=== PATIENT | female | born 1985 | race Caucasian/White ===

== ENCOUNTER 2017-04-10 18:31 | Inpatient (IN) | payer MEDICARE, OTHER ==
[2017-04-10 19:18] VITALS: BMI 25.0
--- NOTE | 2017-04-10 22:49 | HP ---
Admission [facility] Chief Complaint: SEEKING REHAB TXMENT FOR ALCOHOLISM. Allergies/Adverse Reactions: Allergies Allergy/AdvReac Type Severity Reaction Status Date / Time Sulfa (Sulfonamide Allergy MOUTH Verified 04/10/17 20:56 Antibiotics) BLISTERS vancomycin Allergy DIFF Verified 04/10/17 20:56 BREATHING, HIVES History of Present Illness: 31 Y.O. FEMALE WITH OPIOID DEPENDENCE AND ALCOHOLISM HERE FOR REHAB SERVICES. CLIENT WAS DC FROM INCARCERATION TODAY ( [employer] [place]) SHE STATES SHE WAS MAINTAINED ON SUBUTEX 4 MG SL BID. LDM SHE REPORTS WAS EARLIER TODAY 4 MG PRIOR TO DC. DECONTAMINATION TECHNICIAN REGISTERY REVIEWED. PT HAS HX/O BUPRENORPHINE 8 MG # 60 RX LAST DISPENSED ON 01/12/2017. SHE IS COURT MANDATED. CLIENT HAS NO DC PAPERS OR DOCUMENTS WITH HER. CASE D/W DR. WOOD WILL ADMIT CLIENT TO REHAB. START SUBOXONE 2 MG SL X 1 DOSE AND MONITOR FOR S/SX OF OVERSEDATION. MAY REPEAT DOSE X 1 IF PT TOLERATES. CLIENT WILL THEN BE ASSESSED AND REEVALUATED FOR CONTINUATION OF THERAPY IN A.M. BY DR. WOOD. D/W CLIENT . CLIENT AGREES TO THE PLAN ABOVE. Exam Limitations: Other (NEWTOK L HEARING AIDE) - Ebola screening Have you traveled outside of the country in the last 21 days: No Have you had contact with anyone from an Ebola affected area: No Have you been sick,other than usual withdrawal symptoms: No Do you have a fever: No - Review of Systems Constitutional: No Symptoms Reported EENT: reports: No Symptoms Reported Respiratory: reports: No Symptoms reported Cardiac: reports: No Symptoms Reported GI: reports: No Symptoms Reported : reports: No Symptoms Reported Musculoskeletal: reports: Neck Pain (DUE TO ACDF SX) Integumentary: reports: Other (RESOLVING ABCESS TO L UNDERARM) Neuro: reports: Seizure, Other (NEWTOK) Endocrine: reports: No Symptoms Reported Hematology: reports: No Symptoms Reported Psychiatric: reports: Anxious Other Systems: Reviewed and Negative Patient History - Patient Medical History Hx Anemia: No Hx Asthma: No Hx Chronic Obstructive Pulmonary Disease (COPD): No Hx Cancer: No Hx Cardiac Disorders: No Hx Congestive Heart Failure: No Hx Hypertension: No Hx Hypercholesterolemia: No Hx Pacemaker: No HX Cerebrovascular Accident: No Hx Seizures: Yes (x3 last being in february R/T DRUG INTERACTION) Hx Dementia: No Hx Diabetes: No Hx Gastrointestinal Disorders: No Hx Liver Disease: No Hx Genitourinary Disorders: No Hx Renal Disease (ESRD): No Hx Thyroid Disease: No Hx Human Immunodeficiency Virus (HIV): No Hx Hepatitis C: No Hx Depression: No Hx Suicide Attempt: No (DENIES SI/HI) Hx Bipolar Disorder: No Hx Schizophrenia: No Other Medical History: NEWTOK OF BOTH EARS/ ANXIETY/AUDITORY HALLUCINATIONS - Patient Surgical History Past Surgical History: Yes Hx Neurologic Surgery: No Hx Cataract Extraction: No Hx Cardiac Surgery: No Hx Lung Surgery: No Hx Breast Surgery: No Hx Breast Biopsy: No Hx Abdominal Surgery: Yes (UMBILICAL HERNIA REPAIR) Hx Appendectomy: No Hx Cholecystectomy: No Hx Genitourinary Surgery: No Hx Section: No Hx Orthopedic Surgery: Yes (ACDF SX OF NECK) Hx Hysterectomy: No Anesthesia Reaction: No - PPD History Previous Implant?: Yes Documented Results: Negative w/o proof Implanted On Prior [facility] Admission?: No PPD to be Administered?: Yes - Reproductive History Patient is a Female of Child Bearing Age (11 -55 yrs old): Yes Last Menstrual Period: 02/08/17 (IRREG) LMP comment: IRREG Patient : No (NEG UHCG) - Smoking Cessation Smoking history: Current every day smoker Have you smoked in the past 12 months: Yes Aproximately how many cigarettes per day: 10 Cigars Per Day: 0 Hx Chewing Tobacco Use: No Initiated information on smoking cessation: Yes 'Breaking Loose' booklet given: 04/10/17 - Substance & Tx. History Hx Alcohol Use: Yes Hx Substance Use: Yes Substance Use Type: Alcohol, Prescribed (SUBUTEX) Hx Substance Use Treatment: Yes ([facility]) - Substances Abused LIQUOR Route: Oral Frequency: Daily Amount used: 1/2 PINT Age of first use: 12 Date of Last Use: 12/08/16 Family Disease History - Family Disease History Family Disease History: Other: Father (ALCOHOLISM/REMISSION) Admission Physical Exam [facility] - Vital Signs Vital Signs: Vital Signs - 24 hr 04/10/17 19:14 Temperature 98.0 F Pulse Rate 109 H Respiratory 18 Rate Blood Pressure 146/83 - Physical General Appearance: Yes: Appropriately Dressed, Anxious HEENTM: Yes: EOMI, Normocephalic, Normal Voice, [place], Pharynx Normal, Other ( NEWTOK IN BOTH EARS L HEARING AIDE NOTED) Respiratory: Yes: Chest Non-Tender, Lungs Clear, Normal Breath Sounds, No Respiratory Distress, No Accessory Muscle Use Neck: Yes: No masses,lesions,Nodules, Supple, Trachea in good position, Other ( SX SCAR TO L SIDE OF NECK) Breast: Yes: Breast Exam Deferred Cardiology: Yes: Regular Rhythm, S1, S2, Tachycardia Abdominal: Yes: Normal Bowel Sounds, Non Tender, Flat, Soft, Surgical Scar Genitourinary: Yes: Within Normal Limits Back: Yes: Normal Inspection Musculoskeletal: Yes: full range of Motion, Gait Steady Extremities: Yes: Normal Capillary Refill, Normal Inspection, Normal Range of Motion, Non-Tender Neurological: Yes: goodwill representative II-XII NML intact, Fully Oriented, Alert, Motor Strength 5/5 Integumentary: Yes: Normal Color, Dry, Warm, Other (ABCESS NOTED TO L UNDERARM NOTED) Lymphatic: Yes: Within Normal Limits - Diagnostic (1) Uncomplicated alcohol dependence Current Visit: Yes Status: Chronic (2) Opioid dependence on agonist therapy Current Visit: Yes Status: Chronic (3) Nicotine dependence Current Visit: Yes Status: Chronic Qualifiers: Nicotine product type: cigarettes Substance use status: uncomplicated Qualified Code(s): F17.210 - Nicotine dependence, cigarettes, uncomplicated (4) [place] (hard of hearing) Current Visit: Yes Status: Chronic Qualifiers: Hearing loss type: unspecified Laterality: bilateral Qualified Code(s): H91.93 - Unspecified hearing loss, bilateral (5) Drug-induced seizure Current Visit: Yes Status: Chronic (6) Cutaneous abscess Current Visit: Yes Status: Acute Qualifiers: Site of cutaneous abscess of extremity: upper extremity Laterality: left Cleared for Admission [facility] - Detox or Rehab Claeared for Rehab Admission: Yes [facility] Breath Alcohol Content Breath Alcohol Content: 0 Urine Pregancy Test - Result Urine Test Results: Negative- NO Line Present Urine Drug Screen - Results Drug Screen Negative: Yes Inpatient Rehab Admission - Initial Determination Are CD services needed?: Yes Free of communicable disease: Yes Not in need of hospitalization: Yes - Rehab Admission Criteria Previous failed treatment: Yes Poor recovery environment: Yes Comorbidities: Yes Lacks judgement: Yes Patient is meeting Inpatient Rehab admission criteria:: Yes
[2017-04-10] MEDS ORDERED: P-EPHED 60MG/TRIPROLIDI 2.5MG TABLET PO PRN (23:09)
[2017-04-10] MEDS ORDERED: MAG HYDROX/AL HYDROX/SIMETH 30 ML UNIT-DOSE CUP PO PRN (23:09)
[2017-04-10] MEDS ORDERED: hydrOXYzine PAMOATE 50 MG CAPSULE (FP) PO PRN (23:09)
[2017-04-10] MEDS ORDERED: NICOTINE POLACRILEX 2 MG GUM BC PRN (23:09)
[2017-04-10] MEDS ORDERED: MAGNESIUM HYDROX 2400MG/30ML ORAL SUSPENSION 30 ML CUP PO PRN (23:09)
[2017-04-10] MEDS ORDERED: guaiFENesin/D-METHORPHAN HB 10 ML UNIT-DOSE CUPS PO PRN (23:09)
[2017-04-10] MEDS ORDERED: LOPERAMIDE HCL 2 MG CAPSULE PO PRN (23:09)
[2017-04-10] MEDS ORDERED: MENTHOL/PHENOL 1 EACH UD MM PRN (23:09)
[2017-04-10] MEDS ORDERED: BUPRENORPHINE/NALOXONE 2 MG/0.5 MG FILM PACKET SL ONE (23:10)
[2017-04-11] MEDS ORDERED: TUBERCULIN PPD 5 TU/0.1ML VIAL ID ONE (00:01)
[2017-04-11] MEDS: DIVALPROEX SODIUM 250 MG TABLET E.C. (FP) PO SCH ×3 (01:40→21:45)
[2017-04-11] MEDS: ACETAMINOPHEN 325 MG TABLET (FP) PO PRN (03:49)
[2017-04-11] MEDS ORDERED: BUPRENORPHINE/NALOXONE 2 MG/0.5 MG FILM PACKET SL ONE ×2 (06:29→12:30)
--- NOTE | 2017-04-11 07:41 | PN ---
[facility] Progress Note Note: CLIENT RECEIVED A TOTAL OF 4 MG OF SUBOXONE THIS MORNING. NO S/SX OF SEDATION NOTED. CLIENT IS A/O X3 NAD. VSS. D/W CLIENT DR. WOOD WILL FOLLOW UP WITH HER THIS MORNING FOR CONTINUATION OF THERAPY. PER CLIENT SHE TAKE 4MG BID. SHE WAS ALSO RESTARTED ON AUGMENTIN 875MG PO BID FOR L ARM ABSCESS. SHE REPORTS SHE HAS ALREADY COMPLETED ABOUT 5 DAYS OF TXMENT. WILL CONT FOR ANOTHER 5 DAYS.
[2017-04-11] MEDS: IBUPROFEN 400 MG TABLET (FP) PO PRN (08:46)
[2017-04-11] MEDS: NICOTINE 14 MG/24 HOURS TOPICAL PATCH TD SCH (09:38)
[2017-04-11] MEDS: PRENATAL VITAMINS W/ FOLIC ACID TABLET (FP) PO SCH (09:38)
[2017-04-11] MEDS: AMOX TR/POT CLAV 875MG/125MG TABLETS (FP) PO SCH ×2 (09:38→17:32)
[2017-04-11] MEDS ORDERED: QUEtiapine FUMARATE 100 MG TABLET (FP) PO SCH (10:00)
[2017-04-11 10:47] LABS: PH,URINE 6.5 (5.0-8.0); URINE APPEARANCE CLEAR; URINE BILIRUBIN NEGATIVE (NEGATIVE); URINE BLOOD NEGATIVE (NEGATIVE); URINE COLOR LT. YELLOW; URINE GLUCOSE (UA) NEGATIVE (NEGATIVE); URINE KETONE NEGATIVE (NEGATIVE); URINE NITRITE NEGATIVE (NEGATIVE); URINE PROTEIN NEGATIVE (NEGATIVE); URINE UROBILINOGEN 0.2 mg/dL (0.2-1.0)
[2017-04-11] MEDS ORDERED: FLU VACCINE QUAD 60 MCG/0.5 ML (MDV 17-18) IM ONE (12:00)
--- NOTE | 2017-04-11 12:07 | PN ---
"[facility] Progress Note (SOAP) Subjective: Patient admitted last night was given suboxone 2mg s/l x2 doses and 2mg suboxone this am, would like to continue MAT in rehab, was on subutex but informed this is not on our formulary. while incarcerated prior to dmission was recieving subustex 4mg bid. no sedation at thsi time would like to increase her dose Dea cobian, 1985 Search Date: 04/11/2017 12:05:11 PM The Drug Utilization Report below displays all of the controlled substance prescriptions, if any, that your patient has filled in the last twelve months. The information displayed on this report is compiled from pharmacy submissions to the Department, and accurately reflects the information as submitted by the pharmacies. This report was requested by: Frankie Soto | Reference #: [id number] Others' Prescriptions Patient Name: Dea Cobian Date: 1985 Address: [address] [place] [address] Sex: Female Rx Written Rx Dispensed Drug Quantity Days Supply Prescriber Name 03/11/2017 03/13/2017 chlordiazepoxide 25 mg capsule 26 5 MarnieTammy Patient Name: Dea Cobian Date: 1985 Address: [address] [place] [address] Sex: Female Rx Written Rx Dispensed Drug Quantity Days Supply Prescriber Name 01/08/2017 01/12/2017 buprenorphine 8 mg tablet sl 60 30 HeBonnie farrar DO 12/13/2016 12/14/2016 buprenorphine 8 mg tablet sl 60 30 HeBonnie farrar DO Patient Name: Dea Cobian Date: 1985 Address: [address] [place] [address] Sex: Female Rx Written Rx Dispensed Drug Quantity Days Supply Prescriber Name 11/13/2016 11/24/2016 buprenorphine 8 mg tablet sl 56 28 Heleni Bonnie L DO 10/16/2016 10/16/2016 buprenorphine 8 mg tablet sl 56 28 Heleni Bonnie L DO 09/25/2016 09/26/2016 buprenorphine 8 mg tablet sl 42 21 Karolina Salazarerilisha Pena DO 09/20/2016 09/20/2016 hydromorphone 4 mg tablet 80 20 Portia Dickey MD 09/15/2016 09/15/2016 hydromorphone 4 mg tablet 72 12 Shakeel Pinedo 08/28/2016 08/28/2016 buprenorphine 8 mg tablet sl 56 28 Bonnie Salazar DO 07/31/2016 07/31/2016 buprenorphine 8 mg tablet sl 50 25 Bonnie Salazar DO 07/03/2016 07/03/2016 buprenorphine 8 mg tablet sl 50 28 Bonnie Salazar DO 06/05/2016 06/05/2016 buprenorphine 8 mg tablet sl 50 28 Bonnie Salazar DO 05/09/2016 05/09/2016 buprenorphine 8 mg tablet sl 53 28 Ivette Salazare Becky DO Objective: 04/11/17 12:14 Vital Signs - 8 hr 04/11/17 07:42 Temperature 97.9 F Pulse Rate 87 Respiratory 18 Rate Blood Pressure 112/70 Laboratory Tests 04/10/17 00:00 Urine Color Lt. yellow Urine Appearance Clear Urine pH 6.5 Ur Specific [place] 1.020 Urine Protein Negative Urine Glucose (UA) Negative Urine Ketones Negative Urine Blood Negative Urine Nitrite Negative Urine Bilirubin Negative Urine Urobilinogen 0.2 labs pending including depakote level Assessment: 04/11/17 12:15 opioid dependence - give additional suboxone 4mg x1 dose now, start on 8mg suboxone in AM. titrate until comfortable and nocravings reported. was detoxed off benzodiazepiens while incarcerated with libirum, no withdrawl sx reproted no tremors noted. nursing informed,. will follow up at [facility] when discharged for MAT and psych care. requesting to d/c am seroquel as it is ccausing sedation."
--- NOTE | 2017-04-11 12:47 | EKG ---
Test Reason : Blood Pressure : / mmHG Vent. Rate : 093 BPM Atrial Rate : 093 BPM P-R Int : 144 ms QRS Dur : 080 ms QT Int : 374 ms P-R-T Axes : 044 054 035 degrees QTc Int : 465 ms NORMAL SINUS RHYTHM NORMAL ECG WHEN COMPARED WITH ECG OF 25-SEP-2013 14:50, VENT. RATE HAS INCREASED BY 31 BPM QT HAS LENGTHENED Confirmed by THELMA LAI, ERASMO ([id number]) on 04/11/2017 12:46:39 PM Referred By: Confirmed By:ERASMO RENEE MD
[2017-04-11 13:45] LABS: MCH 32.6 pg (25.7-33.7); MCHC 33.6 g/dl (32.0-36.0); MEAN CELL VOLUME 96.9 fl (80-96); PLATELET COUNT 229 K/MM3 (134-434); RDW 14.2 % (11.6-15.6); WHITE BLOOD COUNT 9.2 K/mm3 (4.0-10.0)
--- NOTE | 2017-04-11 14:05 | HP ---
Psychiatrist Admission - Data Date of interview: 04/11/17 Admission source: [facility] Identifying data: This is the first admission to [address] [place] [address] for this 31 years old single mother of 2(kids reside with the patient 's mother),[place]. Medical History: Hearing problem,H/O ACDF(Anterior cervical dissectional fusion) ,H/O seizures. Psychiatric History: First contact with psychiatrist was at 10 years old due to family issues(parents got into difficult divorce).Patient was dx with Depression and placed on Zoloft and Buspar.Reports first admission to [address] [place] [address] at 11 yo due to behavioral problems.Reports 2 more admissions.Most recent admission was in November 2016 to [facility] due to auditory hallucinations.Patient sees psychiatrist in [facility]) .Current medications:DEPAKOTE 750 MG PO BID AND SEROQUEL 500 MG PO HS. Physical/Sexual Abuse/Trauma History: denies Vital Signs: Vital Signs - 24 hr 04/10/17 04/11/17 04/11/17 19:14 02:01 07:42 Temperature 98.0 F 98.3 F 97.9 F Pulse Rate 109 H 108 H 87 Respiratory 18 18 18 Rate Blood Pressure 146/83 107/71 112/70 Allergies/Adverse Reactions: Allergies Allergy/AdvReac Type Severity Reaction Status Date / Time Sulfa (Sulfonamide Allergy MOUTH Verified 04/10/17 20:56 Antibiotics) BLISTERS vancomycin Allergy DIFF Verified 04/10/17 20:56 BREATHING, HIVES Date of last physical exam: 04/10/17 Concur with the findings of this exam: Yes - Substance Abuse/Tx History Hx Alcohol Use: Yes (reports drinking since 12 yo,5 double shots of whiskey) Hx Substance Use: Yes (pain killers since 12 yo,was on Subutex,cocaine on/off) Substance Use Type: Alcohol, Cocaine, Heroin Hx Substance Use Treatment: Yes (longest time of abstinence 7 years) Mental Status Exam - Mental Status Exam Alert and Oriented to: Time (communication is difficult due to hearing impairement), Place, Person Cognitive Function: Grossly Intact Patient Appearance: Well Groomed Mood: Euthymic Affect: Mood Congruent Patient Behavior: Cooperative Speech Pattern: Clear Voice Loudness: Normal Thought Process: Goal Oriented Thought Disorder: Being Controlled Hallucinations: Denies Suicidal Ideation: Denies Homicidal Ideation: Denies Insight/Judgement: Fair Sleep: Fair Muscle strength/Tone: Normal Gait/Station: Normal Psychiatric Findings - Problem List ([place] 1, 2,3) (1) [place] (hard of hearing) Current Visit: Yes Status: Chronic Qualifiers: Hearing loss type: unspecified Laterality: bilateral Qualified Code(s): H91.93 - Unspecified hearing loss, bilateral (2) Nicotine dependence Current Visit: Yes Status: Chronic Qualifiers: Nicotine product type: cigarettes Substance use status: uncomplicated Qualified Code(s): F17.210 - Nicotine dependence, cigarettes, uncomplicated (3) Opioid dependence on agonist therapy Current Visit: Yes Status: Chronic (4) Alcohol dependence Current Visit: Yes Status: Chronic - Initial Treatment Plan Initial Treatment Plan: Continue current medications as per plan.Will monitor progress.
[2017-04-11 14:11] LABS: ALBUMIN 3.9 g/dl (3.4-5.0); ALK PHOS 46 U/L (45-117); ANION GAP 9 (8-16); BILIRUBIN,TOTAL 0.3 mg/dL (0.2-1.0); CALCIUM 9.1 mg/dL (8.5-10.1); CO2 26 mmol/L (21-32); CREATININE 0.8 mg/dL (0.55-1.02); GLUCOSE,RANDOM 79 mg/dL (74-106); SGOT/AST 8 U/L (15-37); SGPT/ALT 34 U/L (12-78); TOT PROT 6.7 g/dl (6.4-8.2)
[2017-04-11 14:53] LABS: HIV 1 & 2 AB NEGATIVE; HIV 1 AGp24 NEGATIVE
[2017-04-11] MEDS: LURASIDONE HCL 20 MG TABLET PO SCH (16:01)
[2017-04-11 20:11] LABS: URINE LEUK ESTERASE Negative (NEGATIVE)
[2017-04-11] MEDS: THIAMINE HCL 100 MG TABLET (FP) PO SCH (21:45)
[2017-04-11] MEDS: QUETIAPINE FUMARATE 400 MG, QUETIAPINE FUMARATE 100 MG PO SCH (21:47)
[2017-04-11] MEDS ORDERED: QUEtiapine FUMARATE 200 MG TABLET ONE (21:47)
[2017-04-11] MEDS ORDERED: QUEtiapine FUMARATE 100 MG TABLET (FP) ONE (21:47)
[2017-04-12] MEDS: AMOX TR/POT CLAV 875MG/125MG TABLETS (FP) PO SCH ×2 (07:05→17:38)
[2017-04-12] MEDS ORDERED: PT OWN MED DRAWER 7, Y5N ONE (08:34)
[2017-04-12] MEDS: PRENATAL VITAMINS W/ FOLIC ACID TABLET (FP) PO SCH (09:46)
[2017-04-12] MEDS: LURASIDONE HCL 20 MG TABLET PO SCH (09:46)
[2017-04-12] MEDS: DIVALPROEX SODIUM 250 MG TABLET E.C. (FP) PO SCH ×2 (09:46→21:03)
[2017-04-12] MEDS: BUPRENORPHINE/NALOXONE 8 MG/2 MG FILM PACKET SL SCH (09:47)
[2017-04-12] MEDS: NICOTINE 14 MG/24 HOURS TOPICAL PATCH TD SCH (09:49)
[2017-04-12] MEDS: ACETAMINOPHEN 325 MG TABLET (FP) PO PRN (11:52)
[2017-04-12] MEDS ORDERED: QUEtiapine FUMARATE 200 MG TABLET ONE (19:23)
[2017-04-12] MEDS ORDERED: QUEtiapine FUMARATE 100 MG TABLET (FP) ONE (19:23)
[2017-04-12] MEDS: QUETIAPINE FUMARATE 400 MG, QUETIAPINE FUMARATE 100 MG PO SCH (21:03)
[2017-04-12] MEDS: THIAMINE HCL 100 MG TABLET (FP) PO SCH (21:03)
[2017-04-13] MEDS: AMOX TR/POT CLAV 875MG/125MG TABLETS (FP) PO SCH ×2 (07:07→17:01)
[2017-04-13] MEDS ORDERED: PT OWN MED DRAWER 7, Y5N ONE (08:26)
[2017-04-13] MEDS: PRENATAL VITAMINS W/ FOLIC ACID TABLET (FP) PO SCH (09:48)
[2017-04-13] MEDS: LURASIDONE HCL 20 MG TABLET PO SCH (09:49)
[2017-04-13] MEDS: DIVALPROEX SODIUM 250 MG TABLET E.C. (FP) PO SCH ×2 (09:49→21:13)
[2017-04-13] MEDS: BUPRENORPHINE/NALOXONE 8 MG/2 MG FILM PACKET SL SCH (09:50)
[2017-04-13] MEDS: NICOTINE 14 MG/24 HOURS TOPICAL PATCH TD SCH (09:50)
--- NOTE | 2017-04-13 14:14 | PN ---
[facility] Progress Note Note: Swollen feet & ankles, c/o yeast infection since taking Augmentin. Vital Signs - 8 hr 04/13/17 07:09 Temperature 97.7 F Pulse Rate 90 Respiratory 18 Rate Blood Pressure 95/58 Laboratory Tests 04/10/17 04/11/17 04/11/17 00:00 10:00 10:00 WBC 9.2 D RBC 3.65 Hgb 11.9 Hct 35.4 MCV 96.9 H MCH 32.6 MCHC 33.6 RDW 14.2 Plt Count 229 MPV 8.0 Sodium 140 Potassium 4.5 Chloride 105 Carbon Dioxide 26 Anion Gap 9 BUN 29 H D Creatinine 0.8 D Creat Clearance w eGFR > 60 Random Glucose 79 Calcium 9.1 Total Bilirubin 0.3 D AST 8 L ALT 34 D Alkaline Phosphatase 46 Total Protein 6.7 Albumin 3.9 Urine Color Lt. yellow Urine Appearance Clear Urine pH 6.5 Ur Specific [place] 1.020 Urine Protein Negative Urine Glucose (UA) Negative Urine Ketones Negative Urine Blood Negative Urine Nitrite Negative Urine Bilirubin Negative Urine Urobilinogen 0.2 Ur Leukocyte Esterase Negative Valproic Acid RPR Titer HIV 1&2 Antibody Screen HIV P24 Antigen 04/11/17 04/11/17 04/11/17 10:00 10:00 10:00 WBC RBC Hgb Hct MCV MCH MCHC RDW Plt Count MPV Sodium Potassium Chloride Carbon Dioxide Anion Gap BUN Creatinine Creat Clearance w eGFR Random Glucose Calcium Total Bilirubin AST ALT Alkaline Phosphatase Total Protein Albumin Urine Color Urine Appearance Urine pH Ur Specific [place] Urine Protein Urine Glucose (UA) Urine Ketones Urine Blood Urine Nitrite Urine Bilirubin Urine Urobilinogen Ur Leukocyte Esterase Valproic Acid 66.999 RPR Titer Nonreactive HIV 1&2 Antibody Screen Negative HIV P24 Antigen Negative labs noted Monistat-7 Lasix 20mg Split suboxone 4mg bid
[2017-04-13] MEDS: FUROSEMIDE 20 MG TABLET (FP) PO SCH (14:52)
[2017-04-13] MEDS: DOCUSATE SODIUM 100 MG CAPSULE (FP) PO SCH ×2 (14:52→21:13)
--- NOTE | 2017-04-13 15:33 | PN ---
Psychiatric Progress Note Vital Signs: Vital Signs Period Temp Pulse Resp BP Sys/Sheikh Pulse Ox Last 24 Hr 97.7 F 90 17-18 95/58 Date of Session: 04/13/17 Chief Complaint:: Romaine nervious,hearing voices,my legs swollen." HPI: Patient addressed Opioid and Alcohol dependence comorbid with Substance induced mood disorder.Rule out Bipolar disorder. ROS: Significant for Hearing impairment. Current Medications: Active Medications Generic Name Dose Route Start Last Admin Trade Name Freq PRN Reason Stop Dose Admin Acetaminophen 650 mg 04/10/17 23:09 04/12/17 11:52 Tylenol - PO 650 mg Q4H PRN Administration PAIN Al Hydroxide/Mg Hydroxide 30 ml 04/10/17 23:09 Mylanta Oral Suspension - PO Q6H PRN DYSPEPSIA Amoxicillin/Clavulanate Potassium 1 tab 04/11/17 09:00 04/13/17 07:07 Augmentin - 875mg Tablet PO 04/16/17 08:59 1 tab BID@0800,1730 HEMA Administration Buprenorphine/Naloxone 2 each 04/14/17 10:00 Suboxone 2mg/0.5mg Sl Film - SL BID HEMA Divalproex Sodium 500 mg 04/14/17 10:00 Depakote - PO DAILY HEMA Divalproex Sodium 750 mg 04/13/17 22:00 Depakote - PO HS HEMA Docusate Sodium 100 mg 04/13/17 14:30 04/13/17 14:52 Colace - PO 100 mg BID HEMA Administration Eucalyptus/Menthol/Phenol/Sorbitol 1 each 04/10/17 23:09 Cepastat Lozenge - MM Q4H PRN SORE THROAT Furosemide 20 mg 04/13/17 14:30 04/13/17 14:52 Lasix - PO 20 mg DAILY HEMA Administration Guaifenesin 10 ml 04/10/17 23:09 Robitussin Dm - PO Q6H PRN COUGH Hydroxyzine Pamoate 50 mg 04/10/17 23:09 Vistaril - PO Q4H PRN AGITATION Ibuprofen 400 mg 04/10/17 23:09 04/11/17 08:46 Motrin - PO 400 mg Q6H PRN Administration SEVERE PAIN Loperamide HCl 4 mg 04/10/17 23:09 Imodium - PO Q6H PRN DIARRHEA Lurasidone HCl 40 mg 04/14/17 10:00 Latuda - PO DAILY HEMA Magnesium Citrate 300 ml 04/10/17 23:09 Citroma - PO Q48H PRN CONSTIPATION Magnesium Hydroxide 30 ml 04/10/17 23:09 04/12/17 21:06 Milk Of Magnesia - PO 30 ml DAILY PRN Administration CONSTIPATION Miconazole Nitrate 1 applic 04/13/17 22:00 Monistat-7 Vaginal Cream - VG 04/19/17 22:01 HS HEMA Nicotine 14 mg 04/11/17 10:00 04/13/17 09:50 Nicoderm Patch - TD 14 mg DAILY HEMA Administration Nicotine Polacrilex 2 mg 04/10/17 23:09 04/11/17 09:39 Nicorette Gum - BC 2 mg Q2H PRN Administration NICOTINE REPLACEMENT RX Multivit/Folic Acid/Iron 1 tab 04/11/17 10:00 04/13/17 09:48 Vitamins ([facility]) - PO 1 tab DAILY HEMA Administration Pseudoephedrine/Triprolidine 1 combo 04/10/17 23:09 Actifed - PO TID PRN NASAL CONGESTION Quetiapine Fumarate 400 mg/ 500 mg 04/11/17 22:00 04/12/17 21:03 Quetiapine Fumarate 100 mg PO 500 mg HS HEMA Administration Thiamine HCl 100 mg 04/11/17 22:00 04/12/17 21:03 Vitamin B1 - PO 100 mg HS HEMA Administration Current Side Effect: No Lab tests ordered: No Lab tests reviewed: Yes Provider note:: Chart was revuewed,patient was evaluated.Treatment plan including medication management has been discussed with the patient.properties of Latuda has been discussed including side effects,benefits and dose adjustment.Continue Depakote 500 mg po daily and Seroquel 500 mg po hs. Supportive therapy provided. Total face to face time:: 30 Mental Status Exam - Mental Status Exam Alert and Oriented to: Time, Place, Person Cognitive Function: Grossly Intact Patient Appearance: Well Groomed Mood: Sad, Anxious Affect: Labile Patient Behavior: Cooperative Speech Pattern: Unclear, Delayed Voice Loudness: Normal Thought Process: Goal Oriented Thought Disorder: Not Present Hallucinations: Denies Suicidal Ideation: Denies Homicidal Ideation: Denies Insight/Judgement: Fair Sleep: Fair Appetite: Good Muscle strength/Tone: Normal Gait/Station: Normal Psychiatric Treatment Plan - Problem List (1) [place] (hard of hearing) Current Visit: Yes Qualifiers: Hearing loss type: unspecified Laterality: bilateral Qualified Code(s): H91.93 - Unspecified hearing loss, bilateral (2) Nicotine dependence Current Visit: Yes Qualifiers: Nicotine product type: cigarettes Substance use status: uncomplicated Qualified Code(s): F17.210 - Nicotine dependence, cigarettes, uncomplicated (3) Opioid dependence on agonist therapy Current Visit: Yes (4) Alcohol dependence Current Visit: Yes (5) Substance induced mood disorder Current Visit: Yes
[2017-04-13] MEDS ORDERED: QUEtiapine FUMARATE 200 MG TABLET ONE (19:16)
[2017-04-13] MEDS ORDERED: QUEtiapine FUMARATE 100 MG TABLET (FP) ONE (19:16)
[2017-04-13] MEDS: QUETIAPINE FUMARATE 400 MG, QUETIAPINE FUMARATE 100 MG PO SCH (21:13)
[2017-04-13] MEDS: MICONAZOLE NITRATE 2% VAGINAL CREAM 45 GM TUBE VG SCH (21:14)
[2017-04-13] MEDS: THIAMINE HCL 100 MG TABLET (FP) PO SCH (21:14)
[2017-04-14] MEDS: AMOX TR/POT CLAV 875MG/125MG TABLETS (FP) PO SCH ×2 (07:01→16:33)
[2017-04-14] MEDS ORDERED: PT OWN MED DRAWER 7, Y5N ONE ×2 (08:08→19:45)
[2017-04-14] MEDS: FUROSEMIDE 20 MG TABLET (FP) PO SCH (09:08)
[2017-04-14] MEDS: DIVALPROEX SODIUM 500 MG TABLET E.C. PO SCH (09:08)
[2017-04-14] MEDS: LURASIDONE HCL 40 MG TABLET PO SCH (09:08)
[2017-04-14] MEDS: DOCUSATE SODIUM 100 MG CAPSULE (FP) PO SCH ×2 (09:08→21:37)
[2017-04-14] MEDS: NICOTINE 14 MG/24 HOURS TOPICAL PATCH TD SCH (09:09)
[2017-04-14] MEDS: PRENATAL VITAMINS W/ FOLIC ACID TABLET (FP) PO SCH (09:09)
[2017-04-14] MEDS: BUPRENORPHINE/NALOXONE 2 MG/0.5 MG FILM PACKET SL SCH ×2 (09:10→21:37)
[2017-04-14] MEDS ORDERED: QUEtiapine FUMARATE 100 MG TABLET (FP) ONE (19:44)
[2017-04-14] MEDS ORDERED: QUEtiapine FUMARATE 200 MG TABLET ONE (19:44)
[2017-04-14] MEDS: QUETIAPINE FUMARATE 400 MG, QUETIAPINE FUMARATE 100 MG PO SCH (21:37)
[2017-04-14] MEDS: DIVALPROEX SODIUM 250 MG TABLET E.C. (FP) PO SCH (21:37)
[2017-04-14] MEDS: THIAMINE HCL 100 MG TABLET (FP) PO SCH (21:37)
[2017-04-14] MEDS: MICONAZOLE NITRATE 2% VAGINAL CREAM 45 GM TUBE VG SCH (21:38)
[2017-04-15] MEDS: AMOX TR/POT CLAV 875MG/125MG TABLETS (FP) PO SCH ×2 (07:11→17:04)
[2017-04-15] MEDS ORDERED: PT OWN MED DRAWER 7, Y5N ONE ×2 (08:05→19:02)
[2017-04-15] MEDS: DIVALPROEX SODIUM 500 MG TABLET E.C. PO SCH (09:38)
[2017-04-15] MEDS: DOCUSATE SODIUM 100 MG CAPSULE (FP) PO SCH ×2 (09:38→21:05)
[2017-04-15] MEDS: PRENATAL VITAMINS W/ FOLIC ACID TABLET (FP) PO SCH (09:38)
[2017-04-15] MEDS: FUROSEMIDE 20 MG TABLET (FP) PO SCH (09:39)
[2017-04-15] MEDS: IBUPROFEN 400 MG TABLET (FP) PO PRN (09:39)
[2017-04-15] MEDS: LURASIDONE HCL 40 MG TABLET PO SCH (09:39)
[2017-04-15] MEDS: BUPRENORPHINE/NALOXONE 2 MG/0.5 MG FILM PACKET SL SCH ×2 (09:40→21:07)
[2017-04-15] MEDS: NICOTINE 14 MG/24 HOURS TOPICAL PATCH TD SCH (09:40)
[2017-04-15] MEDS ORDERED: SODIUM PHOSPHATE/NA BIPHOS 133 ML ENEMA PR ONE (13:30)
[2017-04-15] MEDS ORDERED: QUEtiapine FUMARATE 200 MG TABLET ONE (19:00)
[2017-04-15] MEDS ORDERED: QUEtiapine FUMARATE 100 MG TABLET (FP) ONE (19:00)
[2017-04-15] MEDS: DIVALPROEX SODIUM 250 MG TABLET E.C. (FP) PO SCH (21:05)
[2017-04-15] MEDS: THIAMINE HCL 100 MG TABLET (FP) PO SCH (21:06)
[2017-04-15] MEDS: QUETIAPINE FUMARATE 400 MG, QUETIAPINE FUMARATE 100 MG PO SCH (21:06)
[2017-04-15] MEDS: MICONAZOLE NITRATE 2% VAGINAL CREAM 45 GM TUBE VG SCH (21:08)
[2017-04-16] MEDS: AMOX TR/POT CLAV 875MG/125MG TABLETS (FP) PO SCH (07:28)
[2017-04-16] MEDS ORDERED: PT OWN MED DRAWER 7, Y5N ONE ×4 (08:02→22:08)
[2017-04-16] MEDS: DOCUSATE SODIUM 100 MG CAPSULE (FP) PO SCH ×2 (09:51→21:06)
[2017-04-16] MEDS: PRENATAL VITAMINS W/ FOLIC ACID TABLET (FP) PO SCH (09:51)
[2017-04-16] MEDS: DIVALPROEX SODIUM 500 MG TABLET E.C. PO SCH (09:51)
[2017-04-16] MEDS: FUROSEMIDE 20 MG TABLET (FP) PO SCH (09:51)
[2017-04-16] MEDS: BUPRENORPHINE/NALOXONE 2 MG/0.5 MG FILM PACKET SL SCH (09:51)
[2017-04-16] MEDS: NICOTINE 14 MG/24 HOURS TOPICAL PATCH TD SCH (09:52)
[2017-04-16] MEDS: LURASIDONE HCL 40 MG TABLET PO SCH (09:53)
--- NOTE | 2017-04-16 11:19 | PN ---
S Progress Note (SOAP) Subjective: c/o ankle edema up to thighs unrelieved by HCTZ oirdered, when she puts her legs up feels short of breath, concerned about weight gain Objective: 04/16/17 11:18 Vital Signs - 24 hr 04/16/17 04/16/17 04/16/17 00:30 03:30 06:32 Temperature 98 F Pulse Rate 89 Respiratory 17 18 16 Rate Blood Pressure 104/62 Laboratory Tests 04/10/17 04/11/17 04/11/17 00:00 10:00 10:00 WBC 9.2 D RBC 3.65 Hgb 11.9 Hct 35.4 MCV 96.9 H MCH 32.6 MCHC 33.6 RDW 14.2 Plt Count 229 MPV 8.0 Sodium 140 Potassium 4.5 Chloride 105 Carbon Dioxide 26 Anion Gap 9 BUN 29 H D Creatinine 0.8 D Creat Clearance w eGFR > 60 Random Glucose 79 Calcium 9.1 Total Bilirubin 0.3 D AST 8 L ALT 34 D Alkaline Phosphatase 46 Total Protein 6.7 Albumin 3.9 Urine Color Lt. yellow Urine Appearance Clear Urine pH 6.5 Ur Specific [place] 1.020 Urine Protein Negative Urine Glucose (UA) Negative Urine Ketones Negative Urine Blood Negative Urine Nitrite Negative Urine Bilirubin Negative Urine Urobilinogen 0.2 Ur Leukocyte Esterase Negative Valproic Acid RPR Titer HIV 1&2 Antibody Screen HIV P24 Antigen 04/11/17 04/11/17 04/11/17 10:00 10:00 10:00 WBC RBC Hgb Hct MCV MCH MCHC RDW Plt Count MPV Sodium Potassium Chloride Carbon Dioxide Anion Gap BUN Creatinine Creat Clearance w eGFR Random Glucose Calcium Total Bilirubin AST ALT Alkaline Phosphatase Total Protein Albumin Urine Color Urine Appearance Urine pH Ur Specific [place] Urine Protein Urine Glucose (UA) Urine Ketones Urine Blood Urine Nitrite Urine Bilirubin Urine Urobilinogen Ur Leukocyte Esterase Valproic Acid 66.999 RPR Titer Nonreactive HIV 1&2 Antibody Screen Negative HIV P24 Antigen Negative elevated bun and creatinine. Assessment: 04/16/17 11:18 edema/water retention, started after initial bloodwork taken, increase diuretics and repeat labs low sodium diet recommended.
[2017-04-16] MEDS ORDERED: BUPRENORPHINE/NALOXONE 8 MG/2 MG FILM PACKET SL ONE (11:22)
[2017-04-16] MEDS ORDERED: FUROSEMIDE 20 MG TABLET (FP) PO SCH (14:00)
[2017-04-16] MEDS ORDERED: QUEtiapine FUMARATE 200 MG TABLET ONE (16:55)
[2017-04-16] MEDS: THIAMINE HCL 100 MG TABLET (FP) PO SCH (21:05)
[2017-04-16] MEDS: DIVALPROEX SODIUM 250 MG TABLET E.C. (FP) PO SCH (21:06)
[2017-04-16] MEDS: QUETIAPINE FUMARATE 400 MG, QUETIAPINE FUMARATE 100 MG PO SCH (21:06)
[2017-04-16] MEDS: MAGNESIUM CITRATE 300 ML BOTTLE PO PRN (21:10)
[2017-04-16] MEDS: MICONAZOLE NITRATE 2% VAGINAL CREAM 45 GM TUBE VG SCH (21:13)
[2017-04-17] MEDS ORDERED: PT OWN MED DRAWER 7, Y5N ONE ×3 (08:38→21:12)
[2017-04-17] MEDS: NICOTINE 14 MG/24 HOURS TOPICAL PATCH TD SCH (09:42)
[2017-04-17] MEDS: DIVALPROEX SODIUM 500 MG TABLET E.C. PO SCH (09:43)
[2017-04-17] MEDS: DOCUSATE SODIUM 100 MG CAPSULE (FP) PO SCH ×2 (09:43→21:10)
[2017-04-17] MEDS: FUROSEMIDE 20 MG TABLET (FP) PO SCH (09:43)
[2017-04-17] MEDS: PRENATAL VITAMINS W/ FOLIC ACID TABLET (FP) PO SCH (09:43)
[2017-04-17] MEDS: BUPRENORPHINE HCL/NALOXONE 12 MG-3 MG SL FILM PACKET SL SCH (09:45)
[2017-04-17] MEDS: LURASIDONE HCL 40 MG TABLET PO SCH (09:46)
[2017-04-17 14:03] LABS: BASOPHIL 0.9 % (0-2.0); EOSINOPHIL 9.8 % (0-4.5); MCHC 32.9 g/dl (32.0-36.0); MEAN CELL VOLUME 97.4 fl (80-96); NEUTROPHILS 49.3 % (42.8-82.8); PLATELET COUNT 243 K/MM3 (134-434); RDW 14.5 % (11.6-15.6); WHITE BLOOD COUNT 6.7 K/mm3 (4.0-10.0)
[2017-04-17 14:12] LABS: ALBUMIN 3.1 g/dl (3.4-5.0); ANION GAP 6 (8-16); CALCIUM 8.7 mg/dL (8.5-10.1); CO2 32 mmol/L (21-32); CREATININE 0.7 mg/dL (0.55-1.02); GLUCOSE,RANDOM 70 mg/dL (74-106); SGOT/AST 23 U/L (15-37); SGPT/ALT 73 U/L (12-78)
[2017-04-17 14:14] LABS: ALK PHOS 49 U/L (45-117); BILIRUBIN,TOTAL 0.4 mg/dL (0.2-1.0); TOT PROT 5.8 g/dl (6.4-8.2)
[2017-04-17] MEDS ORDERED: QUEtiapine FUMARATE 200 MG TABLET ONE (19:32)
[2017-04-17] MEDS ORDERED: QUEtiapine FUMARATE 100 MG TABLET (FP) ONE (19:32)
[2017-04-17] MEDS: QUETIAPINE FUMARATE 400 MG, QUETIAPINE FUMARATE 100 MG PO SCH (21:10)
[2017-04-17] MEDS: DIVALPROEX SODIUM 250 MG TABLET E.C. (FP) PO SCH (21:10)
[2017-04-17] MEDS: MICONAZOLE NITRATE 2% VAGINAL CREAM 45 GM TUBE VG SCH (21:11)
[2017-04-17] MEDS: THIAMINE HCL 100 MG TABLET (FP) PO SCH (21:13)
[2017-04-17 23:27] LABS: URINE APPEARANCE CLOUDY; URINE BILIRUBIN NEGATIVE (NEGATIVE); URINE BLOOD NEGATIVE (NEGATIVE); URINE COLOR YELLOW; URINE GLUCOSE (UA) NEGATIVE (NEGATIVE); URINE KETONE NEGATIVE (NEGATIVE); URINE NITRITE NEGATIVE (NEGATIVE); URINE PROTEIN NEGATIVE (NEGATIVE); URINE UROBILINOGEN NEGATIVE mg/dL (0.2-1.0)
[2017-04-18] MEDS ORDERED: PT OWN MED DRAWER 7, Y5N ONE (08:34)
[2017-04-18] MEDS: DOCUSATE SODIUM 100 MG CAPSULE (FP) PO SCH ×2 (09:54→21:09)
[2017-04-18] MEDS: LURASIDONE HCL 40 MG TABLET PO SCH (09:54)
[2017-04-18] MEDS: DIVALPROEX SODIUM 500 MG TABLET E.C. PO SCH (09:55)
[2017-04-18] MEDS: BUPRENORPHINE HCL/NALOXONE 12 MG-3 MG SL FILM PACKET SL SCH (09:55)
[2017-04-18] MEDS: FUROSEMIDE 20 MG TABLET (FP) PO SCH (09:55)
[2017-04-18] MEDS: NICOTINE 14 MG/24 HOURS TOPICAL PATCH TD SCH (09:55)
[2017-04-18] MEDS: PRENATAL VITAMINS W/ FOLIC ACID TABLET (FP) PO SCH (09:55)
[2017-04-18 10:56] LABS: URINE LEUK ESTERASE Negative (NEGATIVE)
[2017-04-18] MEDS: ACETAMINOPHEN 325 MG TABLET (FP) PO PRN (15:04)
[2017-04-18] MEDS ORDERED: QUEtiapine FUMARATE 200 MG TABLET ONE (19:44)
[2017-04-18] MEDS ORDERED: QUEtiapine FUMARATE 100 MG TABLET (FP) ONE (19:44)
[2017-04-18] MEDS: QUETIAPINE FUMARATE 400 MG, QUETIAPINE FUMARATE 100 MG PO SCH (21:09)
[2017-04-18] MEDS: DIVALPROEX SODIUM 250 MG TABLET E.C. (FP) PO SCH (21:09)
[2017-04-18] MEDS: THIAMINE HCL 100 MG TABLET (FP) PO SCH (21:09)
[2017-04-18] MEDS: MICONAZOLE NITRATE 2% VAGINAL CREAM 45 GM TUBE VG SCH (21:11)
[2017-04-19] MEDS ORDERED: PT OWN MED DRAWER 7, Y5N ONE (08:27)
[2017-04-19] MEDS: DOCUSATE SODIUM 100 MG CAPSULE (FP) PO SCH ×2 (09:48→21:06)
[2017-04-19] MEDS: LURASIDONE HCL 40 MG TABLET PO SCH (09:48)
[2017-04-19] MEDS: BUPRENORPHINE HCL/NALOXONE 12 MG-3 MG SL FILM PACKET SL SCH (09:48)
[2017-04-19] MEDS: PRENATAL VITAMINS W/ FOLIC ACID TABLET (FP) PO SCH (09:48)
[2017-04-19] MEDS: NICOTINE 14 MG/24 HOURS TOPICAL PATCH TD SCH (09:48)
[2017-04-19] MEDS: DIVALPROEX SODIUM 500 MG TABLET E.C. PO SCH (09:48)
[2017-04-19] MEDS: FUROSEMIDE 20 MG TABLET (FP) PO SCH (09:48)
[2017-04-19] MEDS ORDERED: QUEtiapine FUMARATE 200 MG TABLET ONE (19:04)
[2017-04-19] MEDS ORDERED: QUEtiapine FUMARATE 100 MG TABLET (FP) ONE (19:04)
[2017-04-19] MEDS: DIVALPROEX SODIUM 250 MG TABLET E.C. (FP) PO SCH (21:05)
[2017-04-19] MEDS: THIAMINE HCL 100 MG TABLET (FP) PO SCH (21:05)
[2017-04-19] MEDS: QUETIAPINE FUMARATE 400 MG, QUETIAPINE FUMARATE 100 MG PO SCH (21:06)
[2017-04-19] MEDS: MICONAZOLE NITRATE 2% VAGINAL CREAM 45 GM TUBE VG SCH (21:07)
[2017-04-20] MEDS ORDERED: PT OWN MED DRAWER 7, Y5N ONE (08:24)
[2017-04-20] MEDS: FUROSEMIDE 20 MG TABLET (FP) PO SCH (09:49)
[2017-04-20] MEDS: DIVALPROEX SODIUM 500 MG TABLET E.C. PO SCH (09:49)
[2017-04-20] MEDS: LURASIDONE HCL 40 MG TABLET PO SCH (09:49)
[2017-04-20] MEDS: PRENATAL VITAMINS W/ FOLIC ACID TABLET (FP) PO SCH (09:50)
[2017-04-20] MEDS: DOCUSATE SODIUM 100 MG CAPSULE (FP) PO SCH ×2 (09:50→21:18)
[2017-04-20] MEDS: NICOTINE 14 MG/24 HOURS TOPICAL PATCH TD SCH (09:50)
[2017-04-20] MEDS: BUPRENORPHINE HCL/NALOXONE 12 MG-3 MG SL FILM PACKET SL SCH (09:50)
[2017-04-20] MEDS: ACETAMINOPHEN 325 MG TABLET (FP) PO PRN (15:42)
[2017-04-20] MEDS ORDERED: QUEtiapine FUMARATE 200 MG TABLET ONE (19:12)
[2017-04-20] MEDS ORDERED: QUEtiapine FUMARATE 100 MG TABLET (FP) ONE (19:13)
[2017-04-20] MEDS: DIVALPROEX SODIUM 250 MG TABLET E.C. (FP) PO SCH (21:17)
[2017-04-20] MEDS: QUETIAPINE FUMARATE 400 MG, QUETIAPINE FUMARATE 100 MG PO SCH (21:18)
[2017-04-20] MEDS: THIAMINE HCL 100 MG TABLET (FP) PO SCH (21:18)
[2017-04-21] MEDS ORDERED: PT OWN MED DRAWER 7, Y5N ONE (09:03)
[2017-04-21] MEDS: NICOTINE 14 MG/24 HOURS TOPICAL PATCH TD SCH (09:38)
[2017-04-21] MEDS: BUPRENORPHINE HCL/NALOXONE 12 MG-3 MG SL FILM PACKET SL SCH (09:39)
[2017-04-21] MEDS: DIVALPROEX SODIUM 500 MG TABLET E.C. PO SCH (09:40)
[2017-04-21] MEDS: PRENATAL VITAMINS W/ FOLIC ACID TABLET (FP) PO SCH (09:40)
[2017-04-21] MEDS: LURASIDONE HCL 40 MG TABLET PO SCH (09:40)
[2017-04-21] MEDS: DOCUSATE SODIUM 100 MG CAPSULE (FP) PO SCH ×2 (09:40→21:12)
[2017-04-21] MEDS: FUROSEMIDE 20 MG TABLET (FP) PO SCH (11:01)
[2017-04-21] MEDS ORDERED: QUEtiapine FUMARATE 200 MG TABLET ONE (19:41)
[2017-04-21] MEDS ORDERED: QUEtiapine FUMARATE 100 MG TABLET (FP) ONE (19:41)
[2017-04-21] MEDS: THIAMINE HCL 100 MG TABLET (FP) PO SCH (21:11)
[2017-04-21] MEDS: DIVALPROEX SODIUM 250 MG TABLET E.C. (FP) PO SCH (21:12)
[2017-04-21] MEDS: QUETIAPINE FUMARATE 400 MG, QUETIAPINE FUMARATE 100 MG PO SCH (21:12)
[2017-04-22] MEDS ORDERED: PT OWN MED DRAWER 7, Y5N ONE ×2 (09:10→23:25)
[2017-04-22] MEDS: PRENATAL VITAMINS W/ FOLIC ACID TABLET (FP) PO SCH (09:51)
[2017-04-22] MEDS: DOCUSATE SODIUM 100 MG CAPSULE (FP) PO SCH ×2 (09:52→21:10)
[2017-04-22] MEDS: NICOTINE 14 MG/24 HOURS TOPICAL PATCH TD SCH (09:52)
[2017-04-22] MEDS: FUROSEMIDE 20 MG TABLET (FP) PO SCH (09:52)
[2017-04-22] MEDS: DIVALPROEX SODIUM 500 MG TABLET E.C. PO SCH (09:52)
[2017-04-22] MEDS: LURASIDONE HCL 40 MG TABLET PO SCH (09:53)
[2017-04-22] MEDS: BUPRENORPHINE HCL/NALOXONE 12 MG-3 MG SL FILM PACKET SL SCH (09:53)
[2017-04-22] MEDS: MAGNESIUM CITRATE 300 ML BOTTLE PO PRN (18:33)
[2017-04-22] MEDS ORDERED: QUEtiapine FUMARATE 200 MG TABLET ONE (19:31)
[2017-04-22] MEDS ORDERED: QUEtiapine FUMARATE 100 MG TABLET (FP) ONE (19:31)
[2017-04-22] MEDS: DIVALPROEX SODIUM 250 MG TABLET E.C. (FP) PO SCH (21:09)
[2017-04-22] MEDS: THIAMINE HCL 100 MG TABLET (FP) PO SCH (21:09)
[2017-04-22] MEDS: QUETIAPINE FUMARATE 400 MG, QUETIAPINE FUMARATE 100 MG PO SCH (21:09)
[2017-04-23] MEDS ORDERED: PT OWN MED DRAWER 7, Y5N ONE (08:22)
[2017-04-23] MEDS: DIVALPROEX SODIUM 500 MG TABLET E.C. PO SCH (09:39)
[2017-04-23] MEDS: NICOTINE 14 MG/24 HOURS TOPICAL PATCH TD SCH (09:39)
[2017-04-23] MEDS: DOCUSATE SODIUM 100 MG CAPSULE (FP) PO SCH ×2 (09:39→21:12)
[2017-04-23] MEDS: PRENATAL VITAMINS W/ FOLIC ACID TABLET (FP) PO SCH (09:39)
[2017-04-23] MEDS: LURASIDONE HCL 40 MG TABLET PO SCH (09:40)
[2017-04-23] MEDS: FUROSEMIDE 20 MG TABLET (FP) PO SCH (09:40)
[2017-04-23] MEDS ORDERED: BUPRENORPHINE HCL/NALOXONE 12 MG-3 MG SL FILM PACKET SL ONE (11:00)
[2017-04-23] MEDS ORDERED: BUPRENORPHINE/NALOXONE 8 MG/2 MG FILM PACKET SL ONE (16:15)
[2017-04-23] MEDS ORDERED: QUEtiapine FUMARATE 200 MG TABLET ONE (19:30)
[2017-04-23] MEDS ORDERED: QUEtiapine FUMARATE 100 MG TABLET (FP) ONE (19:30)
[2017-04-23] MEDS: DIVALPROEX SODIUM 250 MG TABLET E.C. (FP) PO SCH (21:11)
[2017-04-23] MEDS: THIAMINE HCL 100 MG TABLET (FP) PO SCH (21:11)
[2017-04-23] MEDS: QUETIAPINE FUMARATE 400 MG, QUETIAPINE FUMARATE 100 MG PO SCH (21:12)
[2017-04-23] MEDS ORDERED: BUPRENORPHINE HCL 8 MG TAB.SUBL SL SCH (22:00)
[2017-04-24] MEDS ORDERED: PT OWN MED DRAWER 7, Y5N ONE ×2 (08:03→09:55)
[2017-04-24] MEDS: FUROSEMIDE 20 MG TABLET (FP) PO SCH (09:11)
[2017-04-24] MEDS: DOCUSATE SODIUM 100 MG CAPSULE (FP) PO SCH ×2 (09:56→21:07)
[2017-04-24] MEDS: PRENATAL VITAMINS W/ FOLIC ACID TABLET (FP) PO SCH (09:56)
[2017-04-24] MEDS: DIVALPROEX SODIUM 500 MG TABLET E.C. PO SCH (09:56)
[2017-04-24] MEDS: LURASIDONE HCL 40 MG TABLET PO SCH (09:56)
[2017-04-24] MEDS: NICOTINE 14 MG/24 HOURS TOPICAL PATCH TD SCH (09:57)
--- NOTE | 2017-04-24 12:20 | PN ---
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 Therapy, Nicotine Dependence and Bipolar Disorder ROS: Hard of hearing Current Medications: Active Medications Generic Name Dose Route Start Last Admin Trade Name Freq PRN Reason Stop Dose Admin Acetaminophen 650 mg 04/10/17 23:09 04/20/17 15:42 Tylenol - PO 650 mg Q4H PRN Administration PAIN Al Hydroxide/Mg Hydroxide 30 ml 04/10/17 23:09 Mylanta Oral Suspension - PO Q6H PRN DYSPEPSIA Divalproex Sodium 500 mg 04/14/17 10:00 04/24/17 09:56 Depakote - PO 500 mg DAILY HEMA Administration Divalproex Sodium 750 mg 04/13/17 22:00 04/23/17 21:11 Depakote - PO 750 mg HS HEMA Administration Docusate Sodium 100 mg 04/13/17 14:30 04/24/17 09:56 Colace - PO 100 mg BID HEMA Administration Eucalyptus/Menthol/Phenol/Sorbitol 1 each 04/10/17 23:09 Cepastat Lozenge - MM Q4H PRN SORE THROAT Furosemide 20 mg 04/17/17 10:00 04/24/17 09:11 Lasix - PO Not Given DAILY HEMA Guaifenesin 10 ml 04/10/17 23:09 Robitussin Dm - PO Q6H PRN COUGH Hydroxyzine Pamoate 50 mg 04/10/17 23:09 Vistaril - PO Q4H PRN AGITATION Loperamide HCl 4 mg 04/10/17 23:09 Imodium - PO Q6H PRN DIARRHEA Lurasidone HCl 40 mg 04/14/17 10:00 04/24/17 09:56 Latuda - PO 40 mg DAILY HEMA Administration Magnesium Citrate 300 ml 04/10/17 23:09 04/22/17 18:33 Citroma - PO 300 ml Q48H PRN Administration CONSTIPATION Magnesium Hydroxide 30 ml 04/10/17 23:09 04/12/17 21:06 Milk Of Magnesia - PO 30 ml DAILY PRN Administration CONSTIPATION Nicotine 14 mg 04/11/17 10:00 04/24/17 09:57 Nicoderm Patch - TD 14 mg DAILY HEMA Administration Nicotine Polacrilex 2 mg 04/10/17 23:09 04/11/17 09:39 Nicorette Gum - BC 2 mg Q2H PRN Administration NICOTINE REPLACEMENT RX Multivit/Folic Acid/Iron 1 tab 04/11/17 10:00 04/24/17 09:56 Vitamins (Sjr) - PO 1 tab DAILY HEMA Administration Pseudoephedrine/Triprolidine 1 combo 04/10/17 23:09 04/22/17 09:53 Actifed - PO 1 combo TID PRN Administration NASAL CONGESTION Quetiapine Fumarate 400 mg/ 500 mg 04/11/17 22:00 04/23/17 21:12 Quetiapine Fumarate 100 mg PO 500 mg HS HEMA Administration Thiamine HCl 100 mg 04/11/17 22:00 04/23/17 21:11 Vitamin B1 - PO 100 mg HS HEMA Administration Current Side Effect: No Lab tests ordered: Yes Lab tests reviewed: Yes Provider note:: Patient will complete this program on 04/25/17. She has met her treatment goals and will continue to address her issues in outpatient treatment at [facility]. She responded well to Depakote 500 mg po BID, Seroquel 500 mg po HS and Latuda 40 mg po daily. Scripts for these medications will be electronically transmitted to [facility] at [address] [place] [address]. She verbalized understanding of the negative consequences of her addiction and told lead technical writer that by connecting with the other women in the program and learning the things they had to go through will help her crystallizing her sobriety. She is stable for discharge on 04/25/17. Total face to face time:: 35 Mental Status Exam - Mental Status Exam Alert and Oriented to: Time, Place, Person Cognitive Function: Fair Patient Appearance: Well Groomed Mood: Hopeful, Euthymic Affect: Appropriate Patient Behavior: Cooperative Speech Pattern: Clear Voice Loudness: Normal Thought Process: Intact Hallucinations: Denies Suicidal Ideation: Denies Homicidal Ideation: Denies Insight/Judgement: Fair Sleep: Fair Appetite: Good Muscle strength/Tone: Normal Gait/Station: Normal Psychiatric Treatment Plan - Problem List (1) Alcohol dependence Current Visit: Yes (2) Opioid dependence on agonist therapy Current Visit: Yes (3) Nicotine dependence Current Visit: Yes Qualifiers: Nicotine product type: cigarettes Substance use status: uncomplicated Qualified Code(s): F17.210 - Nicotine dependence, cigarettes, uncomplicated (4) Bipolar disorder Current Visit: Yes (5) Drug-induced seizure Current Visit: Yes (6) [place] (hard of hearing) Current Visit: Yes Qualifiers: Hearing loss type: unspecified Laterality: bilateral Qualified Code(s): H91.93 - Unspecified hearing loss, bilateral Initial treatment plan: Patient will be discharged tomorrow and referred to [facility] for outpatient treatment
[2017-04-24] MEDS: BUPRENORPHINE/NALOXONE 8 MG/2 MG FILM PACKET SL SCH (14:59)
[2017-04-24] MEDS ORDERED: QUEtiapine FUMARATE 200 MG TABLET ONE (19:37)
[2017-04-24] MEDS ORDERED: QUEtiapine FUMARATE 100 MG TABLET (FP) ONE (19:37)
[2017-04-24] MEDS: DIVALPROEX SODIUM 250 MG TABLET E.C. (FP) PO SCH (21:06)
[2017-04-24] MEDS: QUETIAPINE FUMARATE 400 MG, QUETIAPINE FUMARATE 100 MG PO SCH (21:07)
[2017-04-24] MEDS: THIAMINE HCL 100 MG TABLET (FP) PO SCH (21:07)
[2017-04-25 07:04] VITALS: TEMP 97.5
[2017-04-25 09:11] VITALS: BP 112/70; PULSE 91
[2017-04-25] MEDS: LURASIDONE HCL 40 MG TABLET PO SCH (09:37)
[2017-04-25] MEDS: PRENATAL VITAMINS W/ FOLIC ACID TABLET (FP) PO SCH (09:37)
[2017-04-25] MEDS: DIVALPROEX SODIUM 500 MG TABLET E.C. PO SCH (09:37)
[2017-04-25] MEDS: DOCUSATE SODIUM 100 MG CAPSULE (FP) PO SCH (09:37)
[2017-04-25] MEDS: FUROSEMIDE 20 MG TABLET (FP) PO SCH (09:37)
[2017-04-25] MEDS: NICOTINE 14 MG/24 HOURS TOPICAL PATCH TD SCH (09:38)
[2017-04-25] MEDS: BUPRENORPHINE/NALOXONE 8 MG/2 MG FILM PACKET SL SCH (09:38)
== END 2017-04-25 09:50 | disposition home or self-care (01) | DRG 895 ==
LOC: YASAS 18:31 → Y3E 21:35
PROVIDERS: ADMIT Psychiatry & Neurology Psychiatry; ATTEND Psychiatry & Neurology Psychiatry
PROC: HZ42ZZZ Group Counseling for Substance Abuse Treatment, Cognitive-Behavioral (ICD-10-PCS; principal; 2017-04-10)
DX: F11.20 Opioid dependence, uncomplicated (principal); F10.20 Alcohol dependence, uncomplicated; F31.9 Bipolar disorder, unspecified; G40.909 Epilepsy, unspecified, not intractable, without status epilepticus; H91.93 Unspecified hearing loss, bilateral
CPT/HCPCS: 36415; 80053; 80164; 81003; 85025; 85027; 86593; 87389; 90688; 93005; 93010; G0008